=== PATIENT | female | born 1960 | race Caucasian/White ===

== ENCOUNTER → 2018-08-30 | Outpatient (CLI) | payer BC ==
--- NOTE | 2018-08-31 12:25 | RADIOLOGY IMAGING REPORT ---
FACILITY: [facility] [place] PATIENT NAME: MARY VIDES : [id number] MR: [id number]: [id number] EXAM DATE: [id number] ORDERING PHYSICIAN: STEFANIA BLISS TECHNOLOGIST: Tayler Emmanuel PROCEDURE:BILATERAL DIGITAL SCREENING MAMMOGRAM WITH CAD ASSISTED INTERPRETATION & 3D TOMOSYNTHESIS COMPARISON:Prior mammogram 05/12/2016. INDICATIONS:screening FINDINGS: The breast tissue demonstrates scattered fibroglandular densities. 2 small appearing benign lymph nodes are noted in the upper outer quadrant of the Right breast that are stable. There is no dominant mass, suspicious cluster of calcifications or persistent areas of architectural distortion. TECHNIQUE: BILATERAL CC & MLO 3D TOMOGRAPHIC IMAGES WERE OBTAINED. CAD WAS USED. DIAGNOSTIC CATEGORY 1--NEGATIVE. RECOMMENDATIONS: ROUTINE MAMMOGRAM AND CLINICAL EVALUATION IN 1 YR. IMPRESSION: BIRADS 1: Negative. Dictated by: Clay Leiva M.D. on 08/31/2018 at 11:13 Transcribed by: KARLIE on 08/31/2018 at 11:46 Approved by: Clay Leiva M.D. on 08/31/2018 at 12:24 [facility]
== END ==
LOC: MAMO 01:30
PROVIDERS: ATTEND Family Medicine
DX: Z12.31 Encounter for screening mammogram for malignant neoplasm of breast (principal)
CPT/HCPCS: 77063; 77067